=== PATIENT | female | born 1990 | race Two or more races ===

== ENCOUNTER 2023-09-11 19:06 | Emergency (ER) | payer MEDICAID, OTHER ==
[~2023-09-11] VITALS: Ht 170.2 cm; Wt 77.3 kg
[2023-09-11 19:10] VITALS: BP 105/79; PULSE 84; RESP 18; O2SAT 100
== END 2023-09-11 22:14 | disposition left against medical advice (07) ==
LOC: EDBD 19:06 → ER 19:06
DX: M54.9 Dorsalgia, unspecified (principal); Z53.21 Procedure and treatment not carried out due to patient leaving prior to being seen by health care provider; V43.62XA Car passenger injured in collision with other type car in traffic accident, initial encounter; Y93.89 Activity, other specified; Y92.488 Other paved roadways as the place of occurrence of the external cause; Y99.8 Other external cause status